=== PATIENT | male | born 1965 | race Caucasian/White ===

== ENCOUNTER 2016-09-20 15:21 | Inpatient (IN) ==
[2016-09-20] MEDS ORDERED: SOLU-MEDROL IV ONE (16:57)
[2016-09-20] MEDS ORDERED: BENADRYL IV ONE (16:57)
[2016-09-20] MEDS ORDERED: DILAUDID IV ONE (16:57)
[2016-09-20] MEDS ORDERED: ZOFRAN IV ONE (16:57)
--- NOTE | 2016-09-20 18:47 | Diag Imaging Result Document ---
PROCEDURE NAME: CHEST-2 VIEWS - 09/20/2016 CHEST, 2 VIEWS AT 1739 HOURS: COMPARISON: 0427 hours. FINDINGS: Lung volumes are improved. There is improvement in the minimal interstitial infiltrate particularly at the left lung base. The lungs are now clear. IMPRESSION: No acute disease.
[2016-09-20] MEDS ORDERED: NS 1,000 ML IV ONE (18:52)
[2016-09-20] MEDS ORDERED: DILAUDID IM PRN (18:52)
[2016-09-21] MEDS: DILAUDID IV PRN ×2 (00:16→10:33)
[2016-09-21] MEDS: ZOFRAN IV PRN ×4 (00:16→19:59)
[2016-09-21 06:08] LABS: MANUAL DIFF NEEDED? NO
[2016-09-21 06:45] LABS: AGAP 8; ALBUMIN 3.3 g/dL (3.5-5.0); ALKALINE PHOSPHATASE 49 U/L (32-122); BUN 11 mg/dL (8-22); CALCIUM 8.5 mg/dL (8.8-10.2); CHLORIDE 103 mmol/L (98-107); COSMO 273; GOT 11 U/L (10-34); GPT 12 U/L (10-44); POTASSIUM 4.1 mmol/L (3.5-5.1); SODIUM 135 mmol/L (136-145); TCO2 24 mmol/L (25-35); TOTAL PROTEIN 6.1 g/dL (6.3-8.3)
[2016-09-21 07:18] LABS: BASO% 0.1 % (0.0-0.8); EOS# 0.01 X1000 (0.0-0.7); EOS% 0.1 % (0.0-10.0); HEMATOCRIT 42.6 % (42.0-52.0); HEMOGLOBIN 14.2 g/dL (14.0-18.0); IMM GRAN# 0.02 X1000 (0.0-0.04); IMM GRAN% 0.2 % (0.0-0.5); LYMPH# 1.13 X1000 (1.2-3.4); LYMPH% 13.1 % (20.5-51.1); MCH 28.9 PG (27-31); MCHC 33.3 g/dL (33-37); MCV 86.8 FL (81-99); MONO# 0.35 X1000 (0.11-0.59); MONO% 4.1 % (1.7-9.3); MPV 9.3 FL (7.4-10.4); NEUT% 82.4 % (42.2-75.2); PLT 304 X1000 (130-400); RBC 4.91 XMIL (4.7-6.1)
[2016-09-21] MEDS ORDERED: NS 1,000 ML IV ONE ×2 (10:01→22:22)
[2016-09-21] MEDS ORDERED: VENTOLIN HFA INH PRN (11:56)
--- NOTE | 2016-09-21 14:21 | HISTORY AND PHYSICAL ---
CHIEF COMPLAINT: "I am having an allergic reaction." HISTORY OF PRESENT ILLNESS: This is a 51-year-old male with a history of asthma, kidney stones, and angioedema presumed idiopathic. He presented to the emergency room, for his third visit in 24 hours, complaining of having a severe allergic reaction. He complains of wheezing with a rash on bilateral hands and arms and swelling to his abdomen. He was evaluated. On each visit given Solu-Medrol, Benadryl, Dilaudid, and Zofran IV along with IV hydration, with the last visit being admitted for further treatment. The patient states that he has been evaluated at multiple facilities for this hereditary idiopathic angioedema. He reports a trigger being aspirin, stating that he ate food with soy sauce which contains salicylate prior to this episode. He was given Dilaudid, steroids, Benadryl, and Zofran along with hydration in the emergency room and admitted for further evaluation and treatment. 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 PAST SURGICAL HISTORY: Right shoulder surgery, and atrial septal defect repair. SOCIAL HISTORY: Denies alcohol, tobacco, or illicit drug use. ALLERGIES: Aspirin, Reglan, NSAIDs, all which cause anaphylaxis. Oxycodone causes nausea, Percodan nausea. Morphine an unknown reaction. HOME MEDICATIONS: Restoril 30 at bedtime, Deltasone 20 as directed, Pepcid 20 daily, Benadryl 50 q.8 hours, Zyrtec 10 daily, albuterol inhaler 4 times a day as needed. REVIEW OF SYSTEMS: A 14 point review of systems is discussed with patient with pertinent positives stated in HPI. He denied chest pain, palpitations, syncope, dizziness, any productive cough, fever, chills, nausea, vomiting, diarrhea, constipation, black or bloody vomitus, black or bloody stools, hematuria, dysuria, frequency, urgency. PHYSICAL EXAMINATION: GENERAL: This is a 51-year-old man who is sitting in the bed, in no distress. VITAL SIGNS: Blood pressure is 142/85, with a heart rate of 82, respirations are 19, temperature is 97.8 degrees oral with room air saturations of 95%-98%. HEENT: Head is normocephalic, atraumatic. Pupils equal, round, react to light. EOMs are intact. Sclerae anicteric. Mucous membranes are moist. NECK: Supple. Trachea midline. CARDIOVASCULAR: Regular rate and rhythm. S1, S2 appreciated. PULMONARY: Breath sounds are clear with no increased work of breathing noted. GASTROINTESTINAL: Abdomen is distended, soft, nontender with bowel sounds in all 4 quadrants. EXTREMITIES: No clubbing, cyanosis, or edema. Pulses are palpable x4. Calves are nontender. SKIN: Warm and dry. No rashes or lesions noted. NEUROLOGIC: He is alert and oriented x3. DIAGNOSTIC DATA: WBC is 8.6, with hemoglobin 14.2, hematocrit 42.6, and platelets of 303,000. Sodium is 135, potassium 4.1, BUN 11, creatinine 0.8, with glucose of 159. Chest x-ray revealed no acute processes. ASSESSMENT AND PLAN: 1. Hereditary angioedema flare. Patient states that this was exacerbated by eating soy sauce which contained salicylate. We will continue with the current regimen. He denies any respiratory symptoms. He states all his symptoms are related to abdominal distention and pain. We will continue to monitor. 2. The patient will attempt to eat, we will monitor how he tolerates this, and hope we can send him home this afternoon with his usual medications and regimen. 3. Further treatments pending hospital course. Dictated by ADY Lange for Willi Blackburn MD cc: ADY Lange MD
[2016-09-21] MEDS ORDERED: SODIUM CHLORIDE 0.9% INJ PRN (16:56)
[2016-09-21] MEDS ORDERED: PHENERGAN IV PRN (16:56)
[2016-09-21] MEDS ORDERED: RESTORIL PO SCH (21:00)
[2016-09-21] MEDS ORDERED: PEPCID PO ONE (22:21)
[2016-09-21] MEDS ORDERED: SODIUM CHLORIDE 0.9% INJ SCH (22:30)
[2016-09-21] MEDS ORDERED: PROTONIX IV SCH (22:30)
[2016-09-22] MEDS ORDERED: PEPCID PO SCH (09:00)
[2016-09-22] MEDS ORDERED: ZYRTEC PO SCH (09:00)
[2016-09-22 16:57] VITALS: BP 164/94
--- NOTE | 2016-09-22 22:05 | DISCHARGE SUMMARY ---
ADMISSION DATE: 09/20/2016 DISCHARGE DATE: 09/22/2016 DISCHARGE DIAGNOSES: 1. Hereditary angioedema with exacerbation. 2. Chronic anxiety. 3. Hypertension. CONSULTATIONS: None. PROCEDURE: None. BRIEF HOSPITAL COURSE: Patient is a 51-year-old male who was admitted as noted on the HPI. Treated in usual fashion. He was given Solu-Medrol. He had an uneventful hospital course. His symptoms appeared to have resolved although he still noted that he required IV Protonix and IV Phenergan. DISPOSITION: The patient will be discharged home. He is awake, alert. He is in no distress. He is having no current symptoms. However interestingly he asked for IV Ativan prior to having his IV removed because he states the IV Ativan prevents the withdrawal from steroids. Discussed with Mr. Robles that I was unaware of how that was possible although Ativan certainly could decrease the irritation, agitation caused by getting steroids but not prevent issues with steroids being removed. He also asked for IV Solu-Medrol as a prescription so that he could do this at home. Discussed with him that is not a prescription that I typically write and in fact was unaware that was possible. Therefore this prescription was not written. FOLLOWUP: Patient will need to follow up with his primary care physician Dr. Wilde in 1-2 weeks, sooner should symptoms worsen or return. TIME SPENT: 35 minutes was spent in discharge planning and instructions. cc: Willi Blackburn MD
--- NOTE | 2016-10-29 01:21 | PROVIDER DOCUMENTATION ---
This chart was entered by Justin Shah Scribe, acting as scribe for Mikey Mckenzie MD. HPI-Rash/Wound/ReCheck - General Source: patient - History of Present Illness-Dermatology Location: reports: hands Quality: reports: itchy Severity: reports: moderate Onset/Duration: reports: unsure Timing: reports: still present, constant Context/Associated Symptoms: reports: rash. denies: edema, hives, sore throat, tender area Locality of Occurance: Home Similar Symptoms Previously?: No Recently seen or treated by another doctor?: No <Memo Prieto - Last Filed: 10/24/16 18:54> - General Source: patient - History of Present Illness-Dermatology Location: reports: hands Quality: reports: itchy Severity: reports: moderate Onset/Duration: reports: unsure Timing: reports: still present, constant Context/Associated Symptoms: reports: rash. denies: edema, hives, sore throat, tender area Locality of Occurance: Home Similar Symptoms Previously?: No Recently seen or treated by another doctor?: No <Mikey Mckenzie - Last Filed: 10/29/16 01:20> - General Chief Complaint: Allergic Reaction Stated Complaint: alergic reaction Time Seen by Provider: 09/20/16 15:37 Allergies/Adverse Reactions: Allergies Allergy/AdvReac Type Severity Reaction Status Date / Time aspirin [From Percodan] Allergy Intermediate NAUSEA Verified 12/24/15 09:36 metoclopramide HCl * Allergy Intermediate ANAPHYLAXIS Verified 12/24/15 09:36 [From Reglan] NSAIDS (Non-Steroidal Allergy Intermediate ANAPHYLAXIS Verified 12/24/15 09:36 Anti-Inflamma oxycodone HCl * Allergy Intermediate NAUSEA Verified 12/24/15 09:36 [From Percodan] oxycodone terephthalate * Allergy Intermediate NAUSEA Verified 12/24/15 09:36 [From Percodan] gluten Allergy Unknown FLUSHING Verified 12/24/15 09:36 morphine Allergy Unknown Unknown Verified 12/24/15 09:36 Home Medications: Home Medication List Medication Instructions Recorded Confirmed Last Taken Type Albuterol Sulfate [Proair Hfa] 1 gm IH 4XDAY PRN 05/03/13 09/20/16 11/08/15 History Cetirizine [Zyrtec] 20 mg PO DAILY 05/03/13 09/21/16 11/08/15 History Famotidine [Pepcid] 20 mg PO DAILY 05/03/13 09/20/16 11/08/15 History Temazepam [Restoril] 30 mg PO HS 09/18/16 09/20/16 Unknown History Budesonide/Formoterol Fumarate 2 inh IH DAILY PRN PRN 09/21/16 09/21/16 Unknown History [Symbicort 160-4.5 Mcg Inhaler] Lorazepam [Ativan] 0.5 mg PO BID PRN #20 tablet 09/22/16 Unknown Rx Methylprednisolone [Medrol Dosepak] 4 mg PO DIRECTED #1 package 09/22/16 Unknown Rx Hydromorphone [Dilaudid] 2 mg PO Q4H PRN PRN #5 tablet 10/11/16 Unknown Rx - History of Present Illness-Dermatology Nature of Presenting Problem: patient is a 51 yo M that presents with possible allergic reaction. patient was seen this am for same symptoms. pt reports that he is short of breath and rash on hands. (Justin Shah) patient is a 51 yo M that presents with possible allergic reaction. patient was seen this am for same symptoms. pt reports that he is short of breath and rash on hands. (Mikey Mckenzie) Review of Systems - Adult - REVIEW OF SYSTEMS - ADULT Constitutional: reports: no symptoms reported. denies: chills, fever Eyes: reports: no symptoms reported Ears, Nose, Mouth & Throat: reports: no symptoms reported. denies: ear discharge, ear pain, sinus problem, throat pain, throat swelling Cardiovascular: reports: no symptoms reported. denies: chest pain, palpitations , syncope Respiratory: reports: no symptoms reported, shortness of breath. denies: cough , wheezing Gastrointestinal: reports: no symptoms reported. denies: abdominal pain, diarrhea, nausea, vomiting Genitourinary: reports: no symptoms reported Musculoskeletal: reports: no symptoms reported Integumentary: reports: no symptoms reported, itching, rash. denies: hives, skin sores/ulcer, skin thickening Neurological: reports: no symptoms reported Psychiatric: reports: no symptoms reported Endocrine: reports: no symptoms reported Hematologic/Lymphatic: reports: no symptoms reported Allergic/Immunologic: reports: no symptoms reported All Other Systems: Reviewed and Negative <Memo Prieto - Last Filed: 10/24/16 18:54> - REVIEW OF SYSTEMS - ADULT Constitutional: denies: chills, fever Ears, Nose, Mouth & Throat: denies: ear discharge, ear pain, sinus problem, throat pain, throat swelling Cardiovascular: denies: chest pain, palpitations, syncope Respiratory: reports: shortness of breath. denies: cough, wheezing Gastrointestinal: denies: abdominal pain, diarrhea, nausea, vomiting Integumentary: reports: itching, rash. denies: hives, skin sores/ulcer, skin thickening <Mikey Mckenzie - Last Filed: 10/29/16 01:20> Past History - Adult - PAST MEDICAL HISTORY-ADULT Review of Records: reports: Old Records Reviewed, Nursing Assessment Review, Medications Reviewed Major Childhood Illnesses: reports: denies history Cardiovascular: reports: denies history Respiratory: reports: denies history, asthma Gastrointestinal: reports: denies history, other Obstetrical/Gynecological: reports: denies history Genitourinary: reports: denies history, kidney stones Musculoskeletal: reports: denies history Neurological: reports: denies history Endocrine/Immune: reports: denies history Other Conditions: reports: denies history, other - PRIOR SURGERIES/PROCEDURES Surgical/Procedure History: reports: EGD, colonoscopy, cardiac stent - IMMUNIZATION STATUS Childhood Immunizations: See Nurse Assessment Flu Vaccine: See Nurse Assessment - FAMILY HISTORY Family History: reviewed, not pertinent - SOCIAL HISTORY Smoking: non-smoker Living Situation: family <Memo Prieto - Last Filed: 10/24/16 18:54> - PAST MEDICAL HISTORY-ADULT Review of Records: reports: Old Records Reviewed, Nursing Assessment Review, Medications Reviewed Respiratory: reports: asthma Gastrointestinal: reports: other (chronic pain due to abdominal angioedema) Genitourinary: reports: kidney stones Other Conditions: reports: other (abd angioedema) - PRIOR SURGERIES/PROCEDURES Surgical/Procedure History: reports: EGD, colonoscopy, cardiac stent - IMMUNIZATION STATUS Childhood Immunizations: See Nurse Assessment Flu Vaccine: See Nurse Assessment - FAMILY HISTORY Family History: reviewed, not pertinent - SOCIAL HISTORY Smoking: non-smoker Living Situation: family <Mikey Mckenzie - Last Filed: 10/29/16 01:20> Physical Exam-General - PHYSICAL EXAM-ADULT Initial Vital Signs Reviewed: Yes - CONSTITUTIONAL General Appearance: appears well, alert, anxious - EYES Eyes: PERRL/EOMI, pink conjunctivae - HEAD, EARS, NOSE, MOUTH & THROAT HENMT: normocephalic/atraumatic, moist mucous membranes, normal ENT inspection - NECK Neck: full range of motion, normal inspection - RESPIRATORY Respiratory: lungs clear, normal breath sounds, no respiratory distress, no accessory muscle use - CARDIOVASCULAR Cardiovascular: regular rate, rhythm, no edema, no murmur - GASTROINTESTINAL (ABDOMEN) Abdominal Exam: normal bowel sounds, non tender, soft, no organomegaly, no pulsatile mass - MUSCULOSKELETAL Extremity: normal range of motion, normal inspection, no pedal edema - SKIN Integumentary: normal color, warm/dry - NEUROLOGIC Neurologic: grossly normal, no motor/sensory deficits - PSYCHIATRIC Psych/Mental Status: normal mood/affect, normal thought content, normal thought process, oriented x 3 <Memo Prieto - Last Filed: 10/24/16 18:54> - PHYSICAL EXAM-ADULT Initial Vital Signs Reviewed: Yes - CONSTITUTIONAL General Appearance: alert, anxious - EYES Eyes: PERRL/EOMI, pink conjunctivae - HEAD, EARS, NOSE, MOUTH & THROAT HENMT: normocephalic/atraumatic, moist mucous membranes, normal ENT inspection - NECK Neck: full range of motion, normal inspection. negative: lymphadenopathy - RESPIRATORY Respiratory: lungs clear, normal breath sounds, no respiratory distress, no accessory muscle use - CARDIOVASCULAR Cardiovascular: regular rate, rhythm, no edema, no murmur - GASTROINTESTINAL (ABDOMEN) Abdominal Exam: normal bowel sounds, non tender, soft, no organomegaly, no pulsatile mass - MUSCULOSKELETAL Extremity: normal range of motion, normal inspection, no pedal edema - SKIN Integumentary: normal color, warm/dry - NEUROLOGIC Neurologic: grossly normal, no motor/sensory deficits - PSYCHIATRIC Psych/Mental Status: normal mood/affect, normal thought content, normal thought process, oriented x 3 <Mikey Mckenzie - Last Filed: 10/29/16 01:20> Progress - PLAN OF CARE/RESULTS Result Diagrams: 09/21/16 06:00 09/21/16 06:00 <Memo Prieto - Last Filed: 10/24/16 18:54> - PLAN OF CARE/RESULTS Result Diagrams: 09/21/16 06:00 09/21/16 06:00 - REASSESSMENT Reassessment #1 Time Reassessed: 17:30 Status: improving Reassessment Comment: rash noted on hands and arms - CHANGE OF SHIFT REPORT (ED Provider) Report Given and Care Transferred to:: Time of Transfer: 17:59 Items Pending: Other (medication) <Mikey Mckenzie - Last Filed: 10/29/16 01:20> - PLAN OF CARE/RESULTS Progress/Plan/Lab Results: Orders Category Date Time Status Admit - [facility] Routine AdmDCTranf 09/20/16 18:52 Ordered Activity - Strict Bedrest ORDERED Care 09/20/16 18:52 Inactive Call Admitting on Arrival AT ADMISSION Care 09/20/16 18:54 Completed Saline Loc DIRECTED Care 09/20/16 18:52 Completed Vital Signs Order ARRIVAL TO ROOM Care 09/20/16 18:52 Active Heart Healthy Diet Diet 09/20/16 18:55 Completed CHEST-2 VIEWS [RAD] Stat Exams 09/20/16 16:08 Completed CBC WITH ELECTRONIC DIFF [HEME] Stat Lab 09/21/16 06:00 Completed CMP [COMPREHENSIVE METABOLIC PANEL] [CHEM] Stat Lab 09/21/16 06:00 Completed 0.9% Sodium Chloride Inj [Ns] 1,000 ml Med 09/20/16 18:52 Discontinued IV 125 mls/hr Diphenhydramine [Benadryl] Med 09/20/16 16:57 Discontinued 25 mg IV NOW ONE Hydromorphone [Dilaudid] Med 09/20/16 16:57 Discontinued 1 mg IV NOW ONE Hydromorphone [Dilaudid] Med 09/20/16 18:52 Discontinued 2 mg IM Q4H PRN PRN Methylprednisolone Sod Succ [Solu-Medrol] Med 09/20/16 16:57 Discontinued 125 mg IV NOW ONE Ondansetron [Zofran] Med 09/20/16 16:57 Discontinued 4 mg IV NOW ONE Ondansetron [Zofran] Med 09/20/16 18:52 Discontinued 4 mg IV Q4H PRN PRN Oxygen Device Routine Oth 09/20/16 18:54 Completed Telemetry [OM.EQ] Routine Oth 09/20/16 18:52 Active Transfer/Admit Order [TRANSFER] Routine Transfer 09/20/16 18:57 Completed Departure - Departure Time of Disposition Decision: 18:38 Certified Medical Emergency: Emergent - Critical Care Note This patient required my direct & personal management of CC.: No <Memo Prieto - Last Filed: 10/24/16 18:54> - Departure Time of Disposition Decision: 18:38 Certified Medical Emergency: Emergent - Critical Care Note This patient required my direct & personal management of CC.: No <Mikey Mckenzie - Last Filed: 10/29/16 01:20> - Departure DIAGNOSIS: Allergic reaction Disposition: HOME 01 Condition: Good This chart was documented by the indicated scribe, (Justin Shah, Scribe) and accurately reflects the services I performed and decisions made by me, Mikey Mckenzie MD, as attested by the provider's signature.
== END 2016-09-22 18:30 | disposition home or self-care (01) ==
LOC: P.ED 15:21 → P.MEDSURG 15:21 → OBSVTOIN 19:25
PROVIDERS: ATTEND Family Medicine